=== PATIENT | female | born 1940 | race Caucasian/White ===

== ENCOUNTER → 2018-09-14 08:46 | Outpatient (CLI) | payer MEDICARE, SELFPAY ==
--- NOTE | 2018-09-14 08:50 | BI_ITS ---
MAMMOGRAPHY - BILATERAL SCREENING REASON FOR EXAM: Female, 77 years old. Routine annual screening examination. PERTINENT HISTORY: Non-contributory. Occasional bilateral breast tenderness. TECHNIQUE: Digital bilateral breast paz (3D mammographic acquisition) in the CC and MLO projections. 2-D mediolateral oblique (MLO) and craniocaudad (CC) views of both breasts were obtained. CAD: Full Field Digital Mammography with Computer Added Detection was performed. COMPARISON: Comparison is made with prior study dated September 07, 2017 and September 04, 2016. FINDINGS: Breast Composition: There are scattered areas of fibroglandular density. There are no dominant masses or suspicious calcifications. Stable small bilateral benign appearing axillary lymph nodes. No other significant abnormalities are identified. There has been no significant change since the prior study. BI/SCREENING MAMM (CAD), BILAT IMPRESSION: Stable bilateral screening mammogram. Yearly follow-up mammogram recommended. (A) ASSESSMENT CATEGORY: BIRADS Category 2: Benign. A letter regarding these results will be sent to the patient by the facility within 30 days. Approximately 10% of breast cancers are not detected by mammography. A normal mammogram should not delay biopsy of a clinically suspicious abnormality. [id number] Electronically Signed: Aleks Del Toro MD at 10:07 EST Tel [phone], Service support ,
--- OUTSIDE RECORDS SUMMARY | 2018-10-31 07:15 | XMS RPT_ITS ---
:1940 Author Organization OHIP Care Team Providers Name Role Phone ANSELMO GERBER MD Attending Priya CLARK MD., DR. BUCKNER Primary Care Priya CLARK MD., DR. BUCKNER Attending Priya CLARK MD., DR. BUCKNER Primary Care Unavailable ANSELMO GERBER MD, MD., DR. BUCKNER Primary Care Unavailable AMBER SINGH, DR. BUCKNER Attending Priya CLARK MD., DR. BUCKNER Primary Care Unavailable SITA CLARK Attending Unavailable SITA CLARK Referring Unavailable SITA CLARK Attending Unavailable SITA CLARK Referring Unavailable SITA CLARK Attending Unavailable SITA CLARK Referring Unavailable Sita Clark Attending Sita Thompson Primary Care Unavailable PROBLEMS PROBLEMS DATE TYPE CONDITION / CODE ATTENDING STATUS SOURCE 09/23/2018 Unknown Z12.31 - Sita Clark Active [facility] for Repository malignant neoplasm of breast / Z12.31(ICD-10) PROCEDURES PROCEDURES No Procedure Records FoundRESULTS RESULTS A1C Collected: 10/13/2018 Status: F Source: [facility] 12:31 PM [facility]ATION REPOSITORY TYPE CODE TESTS RESULT OUT OF RANGE REFERENCE UNITS LAB A1C(LOINC) 4.5-6.2 % Hgb A1c 6.0 Performed By: #### A1C #### [facility] [address] [place] [address] CNPTOUTREACH Observed: 10/04/2018 Status: COMPLETED Source: [place] 12:00 AM [facility] REPOSITORY Patient Outreach (INTMWH) YADY RIVERA ([id number]) 1940 F Date Time Provider Department 10/04/[facility] During your visit today, we recorded the following information about you: Allergies As of Date: 10/04/2018 (No Known Allergies) Date Reviewed: 06/11/2018 Reviewed by: Uzma España LPN - Fully Assessed Visit Diagnosis:Medication management [Z79.899] Order(s):BASIC METABOLIC PNL [SQBMP] Order #: [id number] FUTURE HGB A1C [TUFMR4G] Order #: [id number] FUTURE Prescriptions as of 10/04/2018 Sig: CINNAMON BARK 500 MG CAPSULE Take 1,000 mg by mouth every * HYDROCHLOROTHIAZIDE 25 MG TAB* Take 0.5 tablets by mouth onc* ATENOLOL 25 MG TABLET Take 1 tablet by mouth once d* LEVOTHYROXINE 88 MCG TABLET Take 1 tablet by mouth daily * ASCORBIC ACID (VITAMIN C) 500* Takes 1/2 tab daily. ASPIRIN 81 MG TABLET Take 81 mg by mouth. CHOLECALCIFEROL (VITAMIN D3) * Take 1 capsule by mouth once * * NIACIN 250 MG TABLET Take one(1) tablet daily. * FISH OIL 500 MG CAPSULE Take one(1) capsule daily. Problem List As Of Date 10/04/2018 Noted Resolved Essential hypertension [I10] More... Hyperlipidemia [E78.5] More... More... Diverticulosis of colon (without mention of hem* More... SEBORRHEIC KERATOSIS NOS [L82.1] Knee Pain [M25.569] INVALID FOR* Benign neoplasm of colon [D12.6] INVALID FOR* More... Subclavian artery stenosis, left [I77.1] More... 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 Bilateral inguinal hernia without obstruction o*INVALID FOR* More... Intermittent palpitations [R00.2] INVALID FOR* Encounter Status:Closed by [employer], PRODUSER on 10/19/18 SCREENING MAMM (CAD), Observed: 09/14/2018 Status: F Source: [facility] 8:50 AM [facility] REPOSITORY [facility] Imaging Services [address] [place] [id number] SCREENING MAMM (CAD), BILAT MR#: [id number] Acct: [id number] Name: YADY RIVERA Rep #: [id number] : 1940 F 77 From: Aleks Del Toro MD PCP: Sita Clark MD Status: [facility] Study: SCREENING MAMM (CAD), BILAT Date of Exam: 09/14/18 Exam# [id number] Ordering Dr: Sita Clark MD MAMMOGRAPHY - BILATERAL SCREENING REASON FOR EXAM: Female, 77 years old. Routine annual screening examination. PERTINENT HISTORY: Non-contributory. Occasional bilateral breast tenderness. TECHNIQUE: Digital bilateral breast paz (3D mammographic acquisition) in the CC and MLO projections. 2-D mediolateral oblique (MLO) and craniocaudad (CC) views of both breasts were obtained. CAD: Full Field Digital Mammography with Computer Added Detection was performed. COMPARISON: Comparison is made with prior study dated September 07, 2017 and September 04, 2016. FINDINGS: Breast Composition: There are scattered areas of fibroglandular density. There are no dominant masses or suspicious calcifications. Stable small bilateral benign appearing axillary lymph nodes. No other significant abnormalities are identified. There has been no significant change since the prior study. BI/SCREENING MAMM (CAD), BILAT IMPRESSION: Stable bilateral screening mammogram. Yearly follow-up mammogram recommended. (A) ASSESSMENT CATEGORY: BIRADS Category 2: Benign. A letter regarding these results will be sent to the patient by the facility within 30 days. Approximately 10% of breast cancers are not detected by mammography. A normal mammogram should not delay biopsy of a clinically suspicious abnormality. [id number] Electronically Signed: Aleks Del Toro MD at 10:07 EST Tel [phone], Service support , CC: Sita Clark MD Lining Scrubber: Signed CBC Collected: 06/29/2018 Status: F Source: [facility] 7:46 AM [facility] REPOSITORY TYPE CODE TESTS RESULT OUT OF REFERENCE UNITS RANGE LAB WBC(LOINC) 4.60-10.80 10 3/mcL WBC 5.90 LAB RBCCT(LOINC 4.20-5.40 10 6/mcL ) RBC 4.51 LAB HGB(LOINC) 12.0-16.0 G/dL Hgb 13.1 LAB HCT(LOINC) 37.0-47.0 % Hct 41.0 LAB MCV(LOINC) 80.0-94.0 fL MCV 91.0 LAB MCH(LOINC) 27.0-31.2 pg MCH 29.0 LAB MCHC(LOINC) 33.0-37.0 G/dL Low MCHC 31.9 LAB RDW(LOINC) 11.5-14.5 % High RDW 14.9 LAB PLT(LOINC) 130-400 10 3/mcL Platelet 268 LAB MPV(LOINC) 7.4-10.4 fL MPV 9.5 Performed By: #### CBC, ADIFF, ANEU #### [address] [address] #### TSH, FT4, FT3, CMP, GFR, A1C, THYR1, THYAB #### [address] [address] .AUTO DIFF Collected: 06/29/2018 Status: F Source: [facility] 7:46 AM [facility] REPOSITORY TYPE CODE TESTS RESULT OUT OF REFERENCE UNITS RANGE LAB ETIENNE(LOINC) 37.0-80.0 % Neutrophil % 54.7 LAB LYM(LOINC) 10.0-50.0 % Lymphocyte % 33.3 LAB MON(LOINC) 1.7-13.0 % Monocyte % 9.4 LAB EO(LOINC) 0.0-7.0 % Eosinophil % 2.0 LAB BAS(LOINC) 0.0-2.5 % Basophil % 0.6 LAB ABLYM(LOIN 0.77-3.85 10 3/mcL C) Lymphocyte, 2.00 Absolute LAB RAFFAELE(LOINC 0.15-1.00 10 3/mcL ) Monocyte, 0.60 Absolute LAB AEOS(LOINC 0.00-0.40 10 3/mcL ) Eosinophil, 0.10 Absolute LAB ABAS(LOINC 0.00-0.19 10 3/mcL ) Basophil, 0.00 Absolute Performed By: #### CBC, ADIFF, ANEU #### [address] [address] #### TSH, FT4, FT3, CMP, GFR, A1C, THYR1, THYAB #### [address] [address] .NEUABS Collected: 06/29/2018 Status: F Source: [facility] 7:46 AM [facility] REPOSITORY TYPE CODE TESTS RESULT OUT OF REFERENCE UNITS RANGE LAB ANEU(LOINC) 2.85-6.16 10 3/mcL Neutrophil, 3.20 Absolute Performed By: #### CBC, ADIFF, ANEU #### [address] [address] #### TSH, FT4, FT3, CMP, GFR, A1C, THYR1, THYAB #### [address] [address] TSH Collected: 06/29/2018 Status: F Source: [facility] 7:46 AM [facility] REPOSITORY TYPE CODE TESTS RESULT OUT OF RANGE REFERENCE UNITS LAB TSH(LOINC) 0.36-3.74 mcIU/mL TSH 0.57 Performed By: #### CBC, ADIFF, ANEU #### [address] [address] #### TSH, FT4, FT3, CMP, GFR, A1C, THYR1, THYAB #### [place] [address] FT4 Collected: 06/29/2018 Status: F Source: [facility] 7:46 AM [facility] REPOSITORY TYPE CODE TESTS RESULT OUT OF RANGE REFERENCE UNITS LAB FT4(LOINC) 0.76-1.46 ng/dL Free T4 1.10 Performed By: #### CBC, ADIFF, ANEU #### [place] [address] #### TSH, FT4, FT3, CMP, GFR, A1C, THYR1, THYAB #### [place] [address] FT3 Collected: 06/29/2018 Status: F Source: [facility] 7:46 AM [facility] REPOSITORY TYPE CODE TESTS RESULT OUT OF RANGE REFERENCE UNITS LAB FT3(LOINC) 2.30-4.00 pg/mL Low Free T3 2.18 Performed By: #### CBC, ADIFF, ANEU #### [place] [address] #### TSH, FT4, FT3, CMP, GFR, A1C, THYR1, THYAB #### [place] [address] CMP Collected: 06/29/2018 Status: F Source: [facility] 7:46 AM [facility] REPOSITORY TYPE CODE TESTS RESULT OUT OF REFERENCE UNITS RANGE LAB GLU(LOINC) 83-110 mg/dL Low Glucose Level 80 LAB NA(LOINC) 136-145 mmol/L Sodium Level 141 LAB K(LOINC) 3.5-5.1 mmol/L Potassium Level 3.8 LAB CL(LOINC) 98-107 mmol/L Chloride 101 LAB CO2(LOINC) 23-31 mmol/L CO2 28 LAB EBAL(LOINC mEq/L ) Electrolyte Balance 12.0 LAB BUN(LOINC) 7-18 mg/dL BUN High 20 LAB CRE(LOINC) 0.55-1.02 mg/dL Creatinine Lvl (s) 0.90 LAB BC(LOINC) 7-27 ratio BUN/Creatinine 22 Ratio LAB CA(LOINC) 8.4-10.2 mg/dL Calcium Lvl 9.2 LAB PROT(LOINC 6.4-8.2 G/dL ) Total Protein 7.5 LAB ALB(LOINC) 3.4-4.8 G/dL Albumin Level 3.8 LAB GLB(LOINC) G/dL Globulin 3.7 LAB AG(LOINC) 1.1-2.5 ratio Low A/G Ratio 1.0 LAB BILT(LOINC 0.2-1.0 mg/dL ) Bili Total 0.5 LAB AP(LOINC) 40-135 U/L Alk Phos 82 LAB AST(LOINC) 10-40 U/L AST/SGOT 17 LAB ALT(LOINC) 10-35 U/L ALT/SGPT 16 Performed By: #### CBC, ADIFF, ANEU #### [address] [address] #### TSH, FT4, FT3, CMP, GFR, A1C, THYR1, THYAB #### [address] [address] .GFR Collected: 06/29/2018 Status: F Source: [facility] 7:46 AM [facility] REPOSITORY TYPE CODE TESTS RESULT OUT OF REFERENCE UNITS RANGE LAB GFRAA(LOINC ml/min/1.73 ) sqm GFR 74 [place] Result Comment: GFR Population mean for , Non- Americans Ages 20-29 = 116 mL/min/1.73 sq.m. Ages 30-39 = 107 mL/min/1.73 sq.m. Ages 40-49 = 99 mL/min/1.73 sq.m. Ages 50-59 = 93 mL/min/1.73 sq.m. Ages 60-69 = 85 mL/min/1.73 sq.m. Ages 70+ = 75 mL/min/1.73 sq.m. Chronic Kidney Disease: Less than 60 mL/min/1.73 square meters End Stage Renal Disease: Less than 15 mL/min/1.73 square meters LAB GFRNO(LOINC) ml/min/1.73sqm GFR Non- 61 Result Comment: GFR Population mean for , Non- Americans Ages 20-29 = 116 mL/min/1.73 sq.m. Ages 30-39 = 107 mL/min/1.73 sq.m. Ages 40-49 = 99 mL/min/1.73 sq.m. Ages 50-59 = 93 mL/min/1.73 sq.m. Ages 60-69 = 85 mL/min/1.73 sq.m. Ages 70+ = 75 mL/min/1.73 sq.m. Chronic Kidney Disease: Less than 60 mL/min/1.73 square meters End Stage Renal Disease: Less than 15 mL/min/1.73 square meters Performed By: #### KALIE, SCOOTER, ANEU #### [address] [address] #### TSH, FT4, FT3, CMP, GFR, A1C, THYR1, THYAB #### [address] [address] A1C Collected: 06/29/2018 Status: F Source: [facility] 7:46 AM [facility] REPOSITORY TYPE CODE TESTS RESULT OUT OF RANGE REFERENCE UNITS LAB A1C(LOINC) 4.5-6.2 % Hgb A1c 6.2 Performed By: #### CBC, SCOOTER, ANEU #### [address] [address] #### TSH, FT4, FT3, CMP, GFR, A1C, THYR1, THYAB #### [address] [address] ZTHYR Collected: 06/29/2018 Status: F Source: [facility] 7:46 AM [facility] REPOSITORY TYPE CODE TESTS RESULT OUT OF REFERENCE UNITS RANGE LAB THYR1(LOIN 2-55 ng/mL C) Thyroglobulin Low <1 Performed By: #### CBC, ADIFF, ANEU #### [address] [address] #### TSH, FT4, FT3, CMP, GFR, A1C, THYR1, THYAB #### [place] [address] THYAB Collected: 06/29/2018 Status: F Source: [facility] 7:46 AM [facility] REPOSITORY TYPE CODE TESTS RESULT OUT OF REFERENCE UNITS RANGE LAB THYRG(LOIN 0-40 IU/mL C) Thyroglobulin Ab <20 LAB MCRSO(LOIN 0-35 IU/mL C) Microsomal Ab 16 Result Comment: This result represents Anti-TPO antibodies which are synonymous with microsomal antibodies. Performed By: #### CBC, ADIFF, ANEU #### [address] [address] #### TSH, FT4, FT3, CMP, GFR, A1C, THYR1, THYAB #### [place] [address] PROGRESS Observed: 06/11/2018 Status: COMPLETED Source: [place] 11:57 AM [facility] REPOSITORY HNO ID: [id number] Author: Sita Clark Service: (none) Author Type: Physician Type: Progress Notes Filed: 06/25/2018 12:51 AM Note Text: Patient presents with: Recheck: Follow up SUBJECTIVE: Yady Rivera is a 77 year old year old lady here today for 4 month follow up appointment for review of medical conditions. Weight loss concern. Weight down again since January but thought had lost all the weight after January though on review of weight in computer saw that weight had been stable from August to January after lost weight last year from 130 to 119. Episodes of heart rate being labile--irregular, lasting 15 minutes--3 to 4 episodes. Starting in January. Not in May, Two after water class. One at night. Maybe gas--had some pressure on abdomen. Issues with constipation noted. No GERD noted. Labs done at [place]. Noted right side of anus on buttocks red lesion about 8mm diameter with small head medially--not tender now. Started a month ago. Figured was a boil. Not painful--just irritating. SKs noted. Still not sleeping well. Could fall asleep but up again 3 to 4AM. Sometimes hard to fall back to sleep. Needs to get up by 8:15AM to take her Synthroid then get breakfast [facility] 11:30 bedtime. PAST MEDICAL HISTORY Diagnosis Date - Benign neoplasm of colon Tubular adenoma on 2011 colonoscopy - Cholelithiasis - Chondromalacia of right patella MRI - Diverticulosis of colon (without mention of hemorrhage) diagnosed 2001 (Dr. Jamaal Rodriguez) on colonoscopy in [facility] - Diverticulosis of colon (without mention of hemorrhage) - LVH (left ventricular hypertrophy) 2011 mild; seen on echo at 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 Kendall Alexandra did angiogram January 06, 2014 - Tubular adenoma 01/13/2016 - Tubular adenoma of colon 01/02/2012 Will be due 01/01/[address] Rizvi - Unspecified essential hypertension Current Outpatient Prescriptions: Cinnamon Bark (CINNAMON) 500 mg cap Take 1,000 mg by mouth every other day. hydroCHLOROthiazide (HYDRODIURIL, ESIDRIX) 25 mg tablet Take 0.5 tablets by mouth once daily. atenolol (TENORMIN) 25 mg tablet Take 1 tablet by mouth once daily. levothyroxine (SYNTHROID) 88 mcg tablet Take 1 tablet by mouth daily before breakfast. 6 days a week per Endocrinology (decreased in March 2017) ascorbic acid, vitamin C, (VITAMIN C) 500 mg tablet Takes 1/2 tab daily. Aspirin 81 mg tab Take 81 mg by mouth. Cholecalciferol, Vitamin D3, 1,000 unit cap Take 1 capsule by mouth once daily. NIACIN 250 MG TAB Take one(1) tablet daily. Docosahexanoic Acid-Eicosapent (FISH OIL) ORAL Cap Take one(1) capsule daily. No current facility-administered medications for this visit. OBJECTIVE: BP 126/78 Pulse 68 Resp 20 Wt 52.6 kg (116 lb) BMI 18.72 kg/m? Patient is alert, oriented times 3, no apparent distress, affect is bright, reactive. Last 5 Encounter BP Readings: Date: BP: 06/11/2018 126/78 01/29/2018 138/66 08/25/2017 124/58 04/10/2017 140/62 02/02/2017 142/60 Last 10 Encounter Wt Readings: Date: Wt: 06/11/2018 52.6 kg (116 lb) 01/29/2018 54 kg (119 lb) 08/25/2017 54 kg (119 lb) 04/10/2017 54.9 kg (121 lb) 01/15/2017 59 kg (130 lb 1.1 oz) 01/08/2017 59 kg (130 lb 1.1 oz) 12/18/2016 59 kg (130 lb) 11/26/2016 59.4 kg (131 lb) 04/18/2016 59.4 kg (131 lb) 12/17/2015 59 kg (130 lb) HEENT: NCAT; no scleral icterus Heart: Regular rate, rhythm, no murmurs, gallops, rubs. Lungs: Clear to auscultation, bilaterally, breathing non labored. Ext: No cyanosis, clubbing, or edema. Inguinal hernia area apparently with bulging bilaterally. Reducible. Larger on left. Not tender. Evaluated while patient standing up (she noted that not noticeable much unless standing up). ASSESSMENT AND PLAN: Encounter Diagnosis ICD-10-CM 1. Essential hypertension I10 2. Intermittent palpitations R00.2 3. Unintended weight loss R63.4 4. Bilateral inguinal hernia without obstruction or gangrene, recurrence not specified K40.20 5. Mixed hyperlipidemia E78.2 6. IFG (impaired fasting glucose) R73.01 7. History of thyroid cancer Z85.850 8. Constipation, unspecified constipation type K59.00 9. SK (seborrheic keratosis) L82.1 Above issues addressed with patient. Patient involved in shared decision making for management of her medical issues. History and medications reviewed. Epic updated as needed Refills taken care of and meds adjusted as indicated after reviewed history, exam and labs. Health Maintenance reviewed. Updated record and/or ordered tests as recorded. Encouraged on efforts at healthy diet and regular exercise and adequate sleep. See patient instructions. Needs to improve sleep. Patient with list of concerns to address today as noted above. She will decide about if/when wants to see general surgeon for opinion regarding inguinal hernias and if/when should have repaired. She needs to improve nutrition before pursuing any kind of elective surgery though. Discussed getting more calories in daily to help with nutrition and prevent further weight loss. Was fairly stable at 119 till this appointment. Further evaluation and treatment as indicated. Monitor palpitations. Further evaluation and treatment as indicated. Suspect needs to drink enough fluids and improve intake of electrolytes (adequate nutrition). The majority of the visit was spent counseling and/or coordinating care for the patient. Sqjg-kh-colj time was at least 25 minutes. Sita Clark MD CNOV Observed: 06/11/2018 Status: COMPLETED Source: [place] 10:40 AM [facility] REPOSITORY Office Visit (INTMWS) YADY RIVERA ([id number]) 1940 F Date Time Provider Department 06/11/18 10:40 AM SITA CLARK [facility] During your visit today, we recorded the following information about you: Pulse Respiration Blood pressure Weight 68/minute 20/minute 126/78 52.6 kg Sita Clark MD 06/25/2018 12:51 AM Signed Patient presents with: Recheck: Follow up SUBJECTIVE: Yadygraciela Rivera is a 77 year old year old lady here today for 4 month follow up appointment for review of medical conditions. Weight loss concern. Weight down again since January but thought had lost all the weight after January though on review of weight in computer saw that weight had been stable from August to January after lost weight last year from 130 to 119. Episodes of heart rate being labile--irregular, lasting 15 minutes--3 to 4 episodes. Starting in January. Not in May, Two after water class. One at night. Maybe gas--had some pressure on abdomen. Issues with constipation noted. No GERD noted. Labs done at [place]. Noted right side of anus on buttocks red lesion about 8mm diameter with small head medially--not tender now. Started a month ago. Figured was a boil. Not painful--just irritating. SKs noted. Still not sleeping well. Could fall asleep but up again 3 to 4AM. Sometimes hard to fall back to sleep. Needs to get up by 8:15AM to take her Synthroid then get breakfast so can go to the . 11:30 bedtime. PAST MEDICAL HISTORY Diagnosis Date - Benign neoplasm of colon Tubular adenoma on 2011 colonoscopy - Cholelithiasis - Chondromalacia of right patella MRI - Diverticulosis of colon (without mention of hemorrhage) diagnosed 2001 (Dr. Jamaal Rodriguez) on colonoscopy in [facility] - Diverticulosis of colon (without mention of hemorrhage) - LVH (left ventricular hypertrophy) 2011 mild; seen on echo at 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 Kendall Alexandra did angiogram January 06, 2014 - Tubular adenoma 01/13/2016 - Tubular adenoma of colon 01/02/2012 Will be due 01/01/[address] Rizvi - Unspecified essential hypertension Current Outpatient Prescriptions: Cinnamon Bark (CINNAMON) 500 mg cap Take 1,000 mg by mouth every other day. hydroCHLOROthiazide (HYDRODIURIL, ESIDRIX) 25 mg tablet Take 0.5 tablets by mouth once daily. atenolol (TENORMIN) 25 mg tablet Take 1 tablet by mouth once daily. levothyroxine (SYNTHROID) 88 mcg tablet Take 1 tablet by mouth daily before breakfast. 6 days a week per Endocrinology (decreased in March 2017) ascorbic acid, vitamin C, (VITAMIN C) 500 mg tablet Takes 1/2 tab daily. Aspirin 81 mg tab Take 81 mg by mouth. Cholecalciferol, Vitamin D3, 1,000 unit cap Take 1 capsule by mouth once daily. NIACIN 250 MG TAB Take one(1) tablet daily. Docosahexanoic Acid-Eicosapent (FISH OIL) ORAL Cap Take one(1) capsule daily. No current facility-administered medications for this visit. OBJECTIVE: BP 126/78 Pulse 68 Resp 20 Wt 52.6 kg (116 lb) BMI 18.72 kg/m? Patient is alert, oriented times 3, no apparent distress, affect is bright, reactive. Last 5 Encounter BP Readings: Date: BP: 06/11/2018 126/78 01/29/2018 138/66 08/25/2017 124/58 04/10/2017 140/62 02/02/2017 142/60 Last 10 Encounter Wt Readings: Date: Wt: 06/11/2018 52.6 kg (116 lb) 01/29/2018 54 kg (119 lb) 08/25/2017 54 kg (119 lb) 04/10/2017 54.9 kg (121 lb) 01/15/2017 59 kg (130 lb 1.1 oz) 01/08/2017 59 kg (130 lb 1.1 oz) 12/18/2016 59 kg (130 lb) 11/26/2016 59.4 kg (131 lb) 04/18/2016 59.4 kg (131 lb) 12/17/2015 59 kg (130 lb) HEENT: NCAT; no scleral icterus Heart: Regular rate, rhythm, no murmurs, gallops, rubs. Lungs: Clear to auscultation, bilaterally, breathing non labored. Ext: No cyanosis, clubbing, or edema. Inguinal hernia area apparently with bulging bilaterally. Reducible. Larger on left. Not tender. Evaluated while patient standing up (she noted that not noticeable much unless standing up). ASSESSMENT AND PLAN: Encounter Diagnosis ICD-10-CM 1. Essential hypertension I10 2. Intermittent palpitations R00.2 3. Unintended weight loss R63.4 4. Bilateral inguinal hernia without obstruction or gangrene, recurrence not specified K40.20 5. Mixed hyperlipidemia E78.2 6. IFG (impaired fasting glucose) R73.01 7. History of thyroid cancer Z85.850 8. Constipation, unspecified constipation type K59.00 9. SK (seborrheic keratosis) L82.1 Above issues addressed with patient. Patient involved in shared decision making for management of her medical issues. History and medications reviewed. Epic updated as needed Refills taken care of and meds adjusted as indicated after reviewed history, exam and labs. Health Maintenance reviewed. Updated record and/or ordered tests as recorded. Encouraged on efforts at healthy diet and regular exercise and adequate sleep. See patient instructions. Needs to improve sleep. Patient with list of concerns to address today as noted above. She will decide about if/when wants to see general surgeon for opinion regarding inguinal hernias and if/when should have repaired. She needs to improve nutrition before pursuing any kind of elective surgery though. Discussed getting more calories in daily to help with nutrition and prevent further weight loss. Was fairly stable at 119 till this appointment. Further evaluation and treatment as indicated. Monitor palpitations. Further evaluation and treatment as indicated. Suspect needs to drink enough fluids and improve intake of electrolytes (adequate nutrition). The majority of the visit was spent counseling and/or coordinating care for the patient. Gfip-im-glll time was at least 25 minutes. MD Sita Hoskins MD 06/11/2018 12:43 PM Signed Sleep Hygiene and Good Sleep Habits Establish a regular routine that includes going to bed and getting up at the same time every day, even on weekends. Maintaining a consistent sleep-wake cycle is the hicks to better health overall. Get an adequate amount of sleep every night. Determine the amount of sleep you need by keeping track of how long you sleep without using an alarm clock for a week. Maintain this personal sleep requirement. Go to bed when you are sleepy. If you have difficulty falling asleep or wake up shortly after going to sleep, leave the bedroom and read quietly or do some other relaxing activity. Avoid bright lights as this can cue your wake cycle. Develop sleep rituals before going to bed. Do the same things in the same order before going to bed to cue your body to slow down and relax. Avoid stress and worries at bedtime. Address tomorrow's activities, concerns, or distractions earlier in the day. Certain activities, such as listening to soft music, reading, or taking a warm bath, can help you wind down. Use your bed for sleeping and sex only. Often, doing other activities in bed like watching TV, paying bills, or working only serve to initiate worries and concerns. Let your mind associate the bed with sleeping, relaxing, and pleasure. Avoid heavy meals late in the evening; similarly, avoid going to bed hungry. A light snack, especially dairy foods, can help you sleep. Reduce your intake of caffeine and nicotine 4-6 hours before going to sleep. Stimulants interfere with your ability to fall asleep and progress into deep sleep. 200mg caffeine (a large Starbucks coffee) taken at 8 AM will impair the sleep architecture that night. Avoid alcohol 4-6 hours before bedtime. As a depressant that slows brain activity, alcohol may initially make you tired, but you will end up having fragmented sleep. In addition, being tired intensifies the effects of alcohol. Alcohol also aggravates snoring and sleep apnea particularly in men. Exercise regularly. Regular exercise, even for 20 minutes, 3 times a week, promotes deep sleep. Don't nap for more than 30 minutes or after 3 PM. Avoiding naps all together will ensure that you are tired at night. Longer naps disrupt the body's ability to stay asleep. Maintain a dark, quiet room to sleep in at a temperature with which you are comfortable. Use sleeping aids conservatively, and avoid using them for more than one or two nights per month. Avoid sleeping pills altogether if you have obstructive sleep apnea because it can be a deadly combination. Referring Provider: SITA CLARK [[id number]] Allergies As of Date: 06/11/2018 (No Known Allergies) Date Reviewed: 06/11/2018 Reviewed by: Uzma España LPN - Fully Assessed Reason for Visit: Recheck [92] Cmt: Follow up Primary Visit Diagnosis:Essential hypertension [I10] Other Visit Diagnoses:Intermittent palpitations [R00.2] Unintended weight loss [R63.4] Bilateral inguinal hernia without obstruction or gangrene, recurrence not specified [K40.20] Mixed hyperlipidemia [E78.2] IFG (impaired fasting glucose) [R73.01] History of thyroid cancer [Z85.850] Constipation, unspecified constipation type [K59.00] SK (seborrheic keratosis) [L82.1] Prescriptions as of 06/11/2018 Sig: CINNAMON BARK 500 MG CAPSULE Take 1,000 mg by mouth every * HYDROCHLOROTHIAZIDE 25 MG TAB* Take 0.5 tablets by mouth onc* ATENOLOL 25 MG TABLET Take 1 tablet by mouth once d* LEVOTHYROXINE 88 MCG TABLET Take 1 tablet by mouth daily * ASCORBIC ACID (VITAMIN C) 500* Takes 1/2 tab daily. ASPIRIN 81 MG TABLET Take 81 mg by mouth. CHOLECALCIFEROL (VITAMIN D3) * Take 1 capsule by mouth once * * NIACIN 250 MG TABLET Take one(1) tablet daily. * FISH OIL 500 MG CAPSULE Take one(1) capsule daily. Medication notes this encounter ASPIRIN 81 MG TABLET >> Uzma España LPN 06/11/2018 11:11 AM >> UZMA ESPAÑA LPN ThuJun 11, 2018 11:11 AM Problem List As Of Date 06/11/2018 Noted Resolved Essential hypertension [I10] More... Hyperlipidemia [E78.5] More... More... Diverticulosis of colon (without mention of hem* More... SEBORRHEIC KERATOSIS NOS [L82.1] Knee Pain [M25.569] INVALID FOR* Benign neoplasm of colon [D12.6] INVALID FOR* More... Subclavian artery stenosis, left [I77.1] More... 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 Bilateral inguinal hernia without obstruction o*INVALID FOR* More... Other instructions from your clinician: Sleep Hygiene and Good Sleep Habits Establish a regular routine that includes going to bed and getting up at the same time every day, even on weekends. Maintaining a consistent sleep-wake cycle is the hicks to better health overall. Get an adequate amount of sleep every night. Determine the amount of sleep you need by keeping track of how long you sleep without using an alarm clock for a week. Maintain this personal sleep requirement. Go to bed when you are sleepy. If you have difficulty falling asleep or wake up shortly after going to sleep, leave the bedroom and read quietly or do some other relaxing activity. Avoid bright lights as this can cue your wake cycle. Develop sleep rituals before going to bed. Do the same things in the same order before going to bed to cue your body to slow down and relax. Avoid stress and worries at bedtime. Address tomorrow's activities, concerns, or distractions earlier in the day. Certain activities, such as listening to soft music, reading, or taking a warm bath, can help you wind down. Use your bed for sleeping and sex only. Often, doing other activities in bed like watching TV, paying bills, or working only serve to initiate worries and concerns. Let your mind associate the bed with sleeping, relaxing, and pleasure. Avoid heavy meals late in the evening; similarly, avoid going to bed hungry. A light snack, especially dairy foods, can help you sleep. Reduce your intake of caffeine and nicotine 4-6 hours before going to sleep. Stimulants interfere with your ability to fall asleep and progress into deep sleep. 200mg caffeine (a large Starbucks coffee) taken at 8 AM will impair the sleep architecture that night. Avoid alcohol 4-6 hours before bedtime. As a depressant that slows brain activity, alcohol may initially make you tired, but you will end up having fragmented sleep. In addition, being tired intensifies the effects of alcohol. Alcohol also aggravates snoring and sleep apnea particularly in men. Exercise regularly. Regular exercise, even for 20 minutes, 3 times a week, promotes deep sleep. Don't nap for more than 30 minutes or after 3 PM. Avoiding naps all together will ensure that you are tired at night. Longer naps disrupt the body's ability to stay asleep. Maintain a dark, quiet room to sleep in at a temperature with which you are comfortable. Use sleeping aids conservatively, and avoid using them for more than one or two nights per month. Avoid sleeping pills altogether if you have obstructive sleep apnea because it can be a deadly combination. Disposition: Return in about 4 months (around 10/11/2018) for 4 months follow up. Follow-up and Disposition History Recorded Encounter Status:Closed by SITA CLARK MD on 06/25/18 MELODY Observed: 05/25/2018 Status: COMPLETED Source: [place] 12:00 AM [facility] REPOSITORY [facility] YADY RIVERA ([id number]) 1940 F Date Time Provider Department 05/25/18 SITA CLARK During your visit today, we recorded the following information about you: Allergies As of Date: 05/25/2018 (No Known Allergies) Date Reviewed: 01/29/2018 Reviewed by: Kaia Duffy Facility Worker - Fully Assessed Visit Diagnosis:Medication management [Z79.899] Prescriptions as of 05/25/2018 Sig: ATENOLOL 25 MG TABLET Take 1 tablet by mouth once d* LEVOTHYROXINE 88 MCG TABLET Take 1 tablet by mouth daily * X HYDROCHLOROTHIAZIDE 25 MG TAB* Take 0.5 tablets by mouth onc* ASCORBIC ACID (VITAMIN C) 500* Takes 1/2 tab daily. ASPIRIN 81 MG TABLET Take 81 mg by mouth. CHOLECALCIFEROL (VITAMIN D3) * Take 1 capsule by mouth once * * NIACIN 250 MG TABLET Take one(1) tablet daily. * FISH OIL 500 MG CAPSULE Take one(1) capsule daily. Problem List As Of Date 05/25/2018 Noted Resolved Essential hypertension [I10] More... Hyperlipidemia [E78.5] More... More... Diverticulosis of colon (without mention of hem* More... SEBORRHEIC KERATOSIS NOS [L82.1] Knee Pain [M25.569] INVALID FOR* Benign neoplasm of colon [D12.6] INVALID FOR* More... Subclavian artery stenosis, left [I77.1] More... 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 Encounter Status:Closed by KURT, PRODUSER on 07/16/18 LIPID Collected: 04/28/2018 Status: F Source: [facility] 7:52 AM [facility] REPOSITORY TYPE CODE TESTS RESULT OUT OF REFERENCE UNITS RANGE LAB CHOL(LOINC 0-200 mg/dL ) Cholesterol High 246 Result Comment: Cholesterol Reference Interval: Less than 200 Desirable 200-239 Borderline high risk 240 and above High risk LAB TRIG(LOINC) 0-150 mg/dL Triglycerides 88 Result Comment: Triglyceride Reference Interval: Less than 150 Normal 150-199 Borderline high risk 200-499 High risk 500 or higher Very high risk LAB HD(LOINC) 40-60 mg/dL HDL High Cholesterol 85 LAB LDL(LOINC) 0-130 mg/dL LDL High Cholesterol 143 Performed By: #### LIPID #### [facility] [address] [place] [address] PROGRESS Observed: 01/29/2018 Status: COMPLETED Source: [place] 11:58 AM [facility] REPOSITORY HNO ID: [id number] Author: Sita Clark Service: (none) Author Type: Physician Type: Progress Notes Filed: 02/11/2018 9:55 PM Note Text: Patient presents with: Recheck SUBJECTIVE: Yady Rivera is a 77 year old year old lady here today for 4 month follow up appointment for review of medical conditions. Will get labs in [address] Gerber. Was told that is borderline DM. Glucose 111 fasting. Puzzled about carb info was given. Constipation with bananas and cheese and calcium pills. Can be a week. Dulcolax helped when had prep. Potassium doing okay. No problems with leg cramps. Only 4 hours of sleep at night. Generic tylenol PM half pill helps. PAST MEDICAL HISTORY Diagnosis Date - Benign neoplasm of colon Tubular adenoma on 2011 colonoscopy - Cholelithiasis - Chondromalacia of right patella MRI - Diverticulosis of colon (without mention of hemorrhage) diagnosed 2001 (Dr. Jamaal Rodriguez) on colonoscopy in [facility] - Diverticulosis of colon (without mention of hemorrhage) - LVH (left ventricular hypertrophy) 2011 mild; seen on echo at 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 Kendall Alexandra did angiogram January 06, 2014 - Tubular adenoma 01/13/2016 - Tubular adenoma of colon 01/02/2012 Will be due 01/01/[address] Rizvi - Unspecified essential hypertension Current Outpatient Prescriptions: atenolol (TENORMIN) 25 mg tablet Take 1 tablet by mouth once daily. levothyroxine (SYNTHROID) 88 mcg tablet Take 1 tablet by mouth daily before breakfast. 6 days a week per Endocrinology (decreased in March 2017) hydroCHLOROthiazide (HYDRODIURIL, ESIDRIX) 25 mg tablet Take 0.5 tablets by mouth once daily. ascorbic acid, vitamin C, (VITAMIN C) 500 mg tablet Takes 1/2 tab daily. Aspirin 81 mg tab Take 81 mg by mouth. Cholecalciferol, Vitamin D3, 1,000 unit cap Take 1 capsule by mouth once daily. NIACIN 250 MG TAB Take one(1) tablet daily. Docosahexanoic Acid-Eicosapent (FISH OIL) ORAL Cap Take one(1) capsule daily. No current facility-administered medications for this visit. OBJECTIVE: BP 138/66 Pulse 60 Resp 12 Wt 54 kg (119 lb) BMI 19.21 kg/m2 Patient is alert, oriented times 3, no apparent distress, affect is bright, reactive. Last 5 Encounter BP Readings: Date: BP: 01/29/2018 138/66 08/25/2017 124/58 04/10/2017 140/62 02/02/2017 142/60 01/15/2017 124/60 Last 5 Encounter Wt Readings: Date: Wt: 01/29/2018 54 kg (119 lb) 08/25/2017 54 kg (119 lb) 04/10/2017 54.9 kg (121 lb) 01/15/2017 59 kg (130 lb 1.1 oz) 01/08/2017 59 kg (130 lb 1.1 oz) Neck: no lymphadenopathy ; carotid noted prominent on right Heart: Regular rate, rhythm, no murmurs, gallops, rubs. Lungs: Clear to auscultation, bilaterally, breathing non labored. Ext: No cyanosis, clubbing, or edema. Abd: tympani BMP Collected: 12/23/2017 9:49 AM Status: F Source: [facility] REPOSITORY TYPE CODE TESTS RESULT OUT OF RANGE REFERENCE UNITS LAB 1547-9 GLUCOSE 111 High 83-110 mg/dL LAB NA(LOINC) Sodium Level 141 ? 136-146 mEq/L LAB K(LOINC) Potassium Level 3.9 ? 3.5-5.1 mEq/L LAB CL(LOINC) Chloride 101 ? 98-107 mEq/L LAB CO2(LOINC) CO2 30 ? 23-31 mEq/L LAB EBAL(LOINC) Electrolyte Balance 10.0 ? ? mEq/L LAB BUN(LOINC) BUN 12.5 ? 7.0-18.0 mg/dL LAB CRE(LOINC) Creatinine Lvl (s) 0.7 ? 0.6-1.2 mg/dL LAB BC(LOINC) BUN/Creatinine Ratio 18 ? 7-27 ratio LAB CA(LOINC) Calcium Lvl 9.5 ? 8.4-10.2 mg/dL Performed By: #### BMP, GFR, TSH, FT4, FT3 #### [place] [address] .GFR Collected: 12/23/2017 9:49 AM Status: F Source: [facility] REPOSITORY TYPE CODE TESTS RESULT OUT OF RANGE REFERENCE UNITS LAB GFRAA([facility]) GFR 91 ? ? ml/min/1.73sqm Result Comment: GFR Population mean for , Non- Americans Ages 20-29 = 116 mL/min/1.73 sq.m. Ages 30-39 = 107 mL/min/1.73 sq.m. Ages 40-49 = 99 mL/min/1.73 sq.m. Ages 50-59 = 93 mL/min/1.73 sq.m. Ages 60-69 = 85 mL/min/1.73 sq.m. Ages 70+ = 75 mL/min/1.73 sq.m. Chronic Kidney Disease: Less than 60 mL/min/1.73 square meters End Stage Renal Disease: Less than 15 mL/min/1.73 square meters LAB GFRNO(LOINC) GFR Non- >60 ? ? ml/min/1.73sqm Result Comment: GFR Population mean for , Non- Americans Ages 20-29 = 116 mL/min/1.73 sq.m. Ages 30-39 = 107 mL/min/1.73 sq.m. Ages 40-49 = 99 mL/min/1.73 sq.m. Ages 50-59 = 93 mL/min/1.73 sq.m. Ages 60-69 = 85 mL/min/1.73 sq.m. Ages 70+ = 75 mL/min/1.73 sq.m. Chronic Kidney Disease: Less than 60 mL/min/1.73 square meters End Stage Renal Disease: Less than 15 mL/min/1.73 square meters Performed By: #### BMP, GFR, TSH, FT4, FT3 #### [address] [address] TSH Collected: 12/23/2017 9:49 AM Status: F Source: [facility] REPOSITORY TYPE CODE TESTS RESULT OUT OF RANGE REFERENCE UNITS LAB TSH(LOINC) TSH 0.47 ? 0.27-4.20 mcIU/mL Performed By: #### JOSE, GFR, TSH, FT4, FT3 #### [address] [address] FT4 Collected: 12/23/2017 9:49 AM Status: F Source: [facility] REPOSITORY TYPE CODE TESTS RESULT OUT OF RANGE REFERENCE UNITS LAB FT4(LOINC) Free T4 1.5 ? 0.6-1.7 ng/mL Performed By: #### JOSE, GFR, TSH, FT4, FT3 #### [address] [address] FT3 Collected: 12/23/2017 9:49 AM Status: F Source: [facility] REPOSITORY TYPE CODE TESTS RESULT OUT OF RANGE REFERENCE UNITS LAB FT3(LOINC) Free T3 2.2 Low 2.3-4.0 pg/mL Performed By: #### JOSE, GFR, TSH, FT4, FT3 #### [address] [address] ASSESSMENT AND PLAN: Encounter Diagnosis ICD-10-CM 1. Essential hypertension I10 2. Mixed hyperlipidemia E78.2 LIPID PANEL BASIC 3. History of thyroid cancer Z85.850 4. Constipation, unspecified constipation type K59.00 5. IFG (impaired fasting glucose) R73.01 Following with sleeping car porter; borderline diabetic. Continue efforts at diet exercise. Discussed carbohydrates and diet was instructed by Dr. Gerber 6. Subclavian artery stenosis, left (HCC) I77.1 7. 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 Continue present management. Will follow up on lipids. She will continue to follow up with sleeping car porter after thyroid cancer treatment. Clinically euthyroid. TSH fine. Continue to adjust dose of replacement as indicated based on symptoms and labs. Discussed management of constipation. Further evaluation and treatment as indicated. Above issues addressed with patient. Patient involved in shared decision making for management of her medical issues. History and medications reviewed. Epic updated as needed Refills taken care of and meds adjusted as indicated after reviewed history, exam and labs. Health Maintenance reviewed. Updated record and/or ordered tests as recorded. Encouraged on efforts at healthy diet and regular exercise and adequate sleep. Reviewed stable from PAD standpoint with regards to history of subclavian artery stenosis and brachial artery occlusion with good collateral circulation when was evaluated by Dr. Alexandra. No complaints of claudication. The majority of the visit was spent counseling and/or coordinating care for the patient. Jkno-it-ywnk time was at least 25 minutes. Sita Clark MD CNOV Observed: 01/29/2018 Status: COMPLETED Source: [place] 11:00 AM [facility] REPOSITORY Office Visit (INTMWS) YADY RIVERA ([id number]) 1940 F Date Time Provider Department 01/29/18 11:00 AM SITA CLARK INTMWS During your visit today, we recorded the following information about you: Pulse Respiration Blood pressure Weight 60/minute 12/minute 138/66 54 kg Sita Clark 02/11/2018 9:55 PM Signed Patient presents with: Recheck SUBJECTIVE: Yady Persaud Miguel is a 77 year old year old lady here today for 4 month follow up appointment for review of medical conditions. Will get labs in [address] Gerber. Was told that is borderline DM. Glucose 111 fasting. Puzzled about carb info was given. Constipation with bananas and cheese and calcium pills. Can be a week. Dulcolax helped when had prep. Potassium doing okay. No problems with leg cramps. Only 4 hours of sleep at night. Generic tylenol PM half pill helps. PAST MEDICAL HISTORY Diagnosis Date - Benign neoplasm of colon Tubular adenoma on 2011 colonoscopy - Cholelithiasis - Chondromalacia of right patella MRI - Diverticulosis of colon (without mention of hemorrhage) diagnosed 2001 (Dr. Jamaal Rodriguez) on colonoscopy in [facility] - Diverticulosis of colon (without mention of hemorrhage) - LVH (left ventricular hypertrophy) 2011 mild; seen on echo at 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 Kendall Alexandra did angiogram January 06, 2014 - Tubular adenoma 01/13/2016 - Tubular adenoma of colon 01/02/2012 Will be due 01/01/[address] Rizvi - Unspecified essential hypertension Current Outpatient Prescriptions: atenolol (TENORMIN) 25 mg tablet Take 1 tablet by mouth once daily. levothyroxine (SYNTHROID) 88 mcg tablet Take 1 tablet by mouth daily before breakfast. 6 days a week per Endocrinology (decreased in March 2017) hydroCHLOROthiazide (HYDRODIURIL, ESIDRIX) 25 mg tablet Take 0.5 tablets by mouth once daily. ascorbic acid, vitamin C, (VITAMIN C) 500 mg tablet Takes 1/2 tab daily. Aspirin 81 mg tab Take 81 mg by mouth. Cholecalciferol, Vitamin D3, 1,000 unit cap Take 1 capsule by mouth once daily. NIACIN 250 MG TAB Take one(1) tablet daily. Docosahexanoic Acid-Eicosapent (FISH OIL) ORAL Cap Take one(1) capsule daily. No current facility-administered medications for this visit. OBJECTIVE: BP 138/66 Pulse 60 Resp 12 Wt 54 kg (119 lb) BMI 19.21 kg/m2 Patient is alert, oriented times 3, no apparent distress, affect is bright, reactive. Last 5 Encounter BP Readings: Date: BP: 01/29/2018 138/66 08/25/2017 124/58 04/10/2017 140/62 02/02/2017 142/60 01/15/2017 124/60 Last 5 Encounter Wt Readings: Date: Wt: 01/29/2018 54 kg (119 lb) 08/25/2017 54 kg (119 lb) 04/10/2017 54.9 kg (121 lb) 01/15/2017 59 kg (130 lb 1.1 oz) 01/08/2017 59 kg (130 lb 1.1 oz) Neck: no lymphadenopathy ; carotid noted prominent on right Heart: Regular rate, rhythm, no murmurs, gallops, rubs. Lungs: Clear to auscultation, bilaterally, breathing non labored. Ext: No cyanosis, clubbing, or edema. Abd: tympani BMP Collected: 12/23/2017 9:49 AM Status: F Source: [facility] REPOSITORY TYPE CODE TESTS RESULT OUT OF RANGE REFERENCE UNITS LAB 1547-9 GLUCOSE 111 High 83-110 mg/dL LAB NA(LOINC) Sodium Level 141 ? 136-146 mEq/L LAB K(LOINC) Potassium Level 3.9 ? 3.5-5.1 mEq/L LAB CL(LOINC) Chloride 101 ? 98-107 mEq/L LAB CO2(LOINC) CO2 30 ? 23-31 mEq/L LAB EBAL(LOINC) Electrolyte Balance 10.0 ? ? mEq/L LAB BUN(LOINC) BUN 12.5 ? 7.0-18.0 mg/dL LAB CRE(LOINC) Creatinine Lvl (s) 0.7 ? 0.6-1.2 mg/dL LAB BC(LOINC) BUN/Creatinine Ratio 18 ? 7-27 ratio LAB CA(LOINC) Calcium Lvl 9.5 ? 8.4-10.2 mg/dL Performed By: #### BMP, GFR, TSH, FT4, FT3 #### [address] [address] .GFR Collected: 12/23/2017 9:49 AM Status: F Source: [facility] REPOSITORY TYPE CODE TESTS RESULT OUT OF RANGE REFERENCE UNITS LAB GFRAA(LOINC) GFR 91 ? ? ml/min/1.73sqm Result Comment: GFR Population mean for , Non- Americans Ages 20-29 = 116 mL/min/1.73 sq.m. Ages 30-39 = 107 mL/min/1.73 sq.m. Ages 40-49 = 99 mL/min/1.73 sq.m. Ages 50-59 = 93 mL/min/1.73 sq.m. Ages 60-69 = 85 mL/min/1.73 sq.m. Ages 70+ = 75 mL/min/1.73 sq.m. Chronic Kidney Disease: Less than 60 mL/min/1.73 square meters End Stage Renal Disease: Less than 15 mL/min/1.73 square meters LAB GFRNO(LOINC) GFR Non- >60 ? ? ml/min/1.73sqm Result Comment: GFR Population mean for , Non- Americans Ages 20-29 = 116 mL/min/1.73 sq.m. Ages 30-39 = 107 mL/min/1.73 sq.m. Ages 40-49 = 99 mL/min/1.73 sq.m. Ages 50-59 = 93 mL/min/1.73 sq.m. Ages 60-69 = 85 mL/min/1.73 sq.m. Ages 70+ = 75 mL/min/1.73 sq.m. Chronic Kidney Disease: Less than 60 mL/min/1.73 square meters End Stage Renal Disease: Less than 15 mL/min/1.73 square meters Performed By: #### JOSE, GFR, TSH, FT4, FT3 #### [address] [address] [address] TSH Collected: 12/23/2017 9:49 AM Status: F Source: [facility] REPOSITORY TYPE CODE TESTS RESULT OUT OF RANGE REFERENCE UNITS LAB TSH(LOINC) TSH 0.47 ? 0.27-4.20 mcIU/mL Performed By: #### JOSE, GFR, TSH, FT4, FT3 #### [facility] [address] [address] FT4 Collected: 12/23/2017 9:49 AM Status: F Source: [facility] REPOSITORY TYPE CODE TESTS RESULT OUT OF RANGE REFERENCE UNITS LAB FT4(LOINC) Free T4 1.5 ? 0.6-1.7 ng/mL Performed By: #### JOSE, GFR, TSH, FT4, FT3 #### [facility] [address], [place] [address] FT3 Collected: 12/23/2017 9:49 AM Status: F Source: [facility] REPOSITORY TYPE CODE TESTS RESULT OUT OF RANGE REFERENCE UNITS LAB FT3(LOINC) Free T3 2.2 Low 2.3-4.0 pg/mL Performed By: #### BMP, GFR, TSH, FT4, FT3 #### [facility] [address], [place] [address] ASSESSMENT AND PLAN: Encounter Diagnosis ICD-10-CM 1. Essential hypertension I10 2. Mixed hyperlipidemia E78.2 LIPID PANEL BASIC 3. History of thyroid cancer Z85.850 4. Constipation, unspecified constipation type K59.00 5. IFG (impaired fasting glucose) R73.01 Following with sleeping car porter; borderline diabetic. Continue efforts at diet exercise. Discussed carbohydrates and diet was instructed by Dr. Gerber 6. Subclavian artery stenosis, left (HCC) I77.1 7. 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 Continue present management. Will follow up on lipids. She will continue to follow up with sleeping car porter after thyroid cancer treatment. Clinically euthyroid. TSH fine. Continue to adjust dose of replacement as indicated based on symptoms and labs. Discussed management of constipation. Further evaluation and treatment as indicated. Above issues addressed with patient. Patient involved in shared decision making for management of her medical issues. History and medications reviewed. Epic updated as needed Refills taken care of and meds adjusted as indicated after reviewed history, exam and labs. Health Maintenance reviewed. Updated record and/or ordered tests as recorded. Encouraged on efforts at healthy diet and regular exercise and adequate sleep. Reviewed stable from PAD standpoint with regards to history of subclavian artery stenosis and brachial artery occlusion with good collateral circulation when was evaluated by Dr. Alexandra. No complaints of claudication. The majority of the visit was spent counseling and/or coordinating care for the patient. Mqta-gb-plrr time was at least 25 minutes. MD Amber Hoskins Liza D 01/29/2018 12:21 PM Signed Sleep Hygiene and Good Sleep Habits Establish a regular routine that includes going to bed and getting up at the same time every day, even on weekends. Maintaining a consistent sleep-wake cycle is the hicks to better health overall. Get an adequate amount of sleep every night. Determine the amount of sleep you need by keeping track of how long you sleep without using an alarm clock for a week. Maintain this personal sleep requirement. Go to bed when you are sleepy. If you have difficulty falling asleep or wake up shortly after going to sleep, leave the bedroom and read quietly or do some other relaxing activity. Avoid bright lights as this can cue your wake cycle. Develop sleep rituals before going to bed. Do the same things in the same order before going to bed to cue your body to slow down and relax. Avoid stress and worries at bedtime. Address tomorrow's activities, concerns, or distractions earlier in the day. Certain activities, such as listening to soft music, reading, or taking a warm bath, can help you wind down. Use your bed for sleeping and sex only. Often, doing other activities in bed like watching TV, paying bills, or working only serve to initiate worries and concerns. Let your mind associate the bed with sleeping, relaxing, and pleasure. Avoid heavy meals late in the evening; similarly, avoid going to bed hungry. A light snack, especially dairy foods, can help you sleep. Reduce your intake of caffeine and nicotine 4-6 hours before going to sleep. Stimulants interfere with your ability to fall asleep and progress into deep sleep. 200mg caffeine (a large Starbucks coffee) taken at 8 AM will impair the sleep architecture that night. Avoid alcohol 4-6 hours before bedtime. As a depressant that slows brain activity, alcohol may initially make you tired, but you will end up having fragmented sleep. In addition, being tired intensifies the effects of alcohol. Alcohol also aggravates snoring and sleep apnea particularly in men. Exercise regularly. Regular exercise, even for 20 minutes, 3 times a week, promotes deep sleep. Don't nap for more than 30 minutes or after 3 PM. Avoiding naps all together will ensure that you are tired at night. Longer naps disrupt the body's ability to stay asleep. Maintain a dark, quiet room to sleep in at a temperature with which you are comfortable. Use sleeping aids conservatively, and avoid using them for more than one or two nights per month. Avoid sleeping pills altogether if you have obstructive sleep apnea because it can be a deadly combination. Referring Provider: SITA CLARK [[id number]] Allergies As of Date: 01/29/2018 (No Known Allergies) Date Reviewed: 01/29/2018 Reviewed by: Kaia Duffy Cma - Fully Assessed Reason for Visit: Recheck [92] Primary Visit Diagnosis:Essential hypertension [I10] Other Visit Diagnoses:Mixed hyperlipidemia [E78.2] History of thyroid cancer [Z85.850] Constipation, unspecified constipation type [K59.00] IFG (impaired fasting glucose) [R73.01] Comment:Following with sleeping car porter; borderline diabetic. Continue efforts at diet exercise. Discussed carbohydrates and diet was instructed by Dr. 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 ASPIRIN 81 MG TABLET Take 81 mg by mouth. CHOLECALCIFEROL (VITAMIN D3) * Take 1 capsule by mouth once * * NIACIN 250 MG TABLET Take one(1) tablet daily. * FISH OIL 500 MG CAPSULE Take one(1) capsule daily. Problem List As Of Date 01/29/2018 Noted Resolved Essential hypertension [I10] More... Hyperlipidemia [E78.5] More... More... Diverticulosis of colon (without mention of hem* More... SEBORRHEIC KERATOSIS NOS [L82.1] Knee Pain [M25.569] INVALID FOR* Benign neoplasm of colon [D12.6] INVALID FOR* More... Subclavian artery stenosis, left [I77.1] More... 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 Maintaining a consistent sleep-wake cycle is the hicks to better health overall. Get an adequate amount of sleep every night. Determine the amount of sleep you need by keeping track of how long you sleep without using an alarm clock for a week. Maintain this personal sleep requirement. Go to bed when you are sleepy. If you have difficulty falling asleep or wake up shortly after going to sleep, leave the bedroom and read quietly or do some other relaxing activity. Avoid bright lights as this can cue your wake cycle. Develop sleep rituals before going to bed. Do the same things in the same order before going to bed to cue your body to slow down and relax. Avoid stress and worries at bedtime. Address tomorrow's activities, concerns, or distractions earlier in the day. Certain activities, such as listening to soft music, reading, or taking a warm bath, can help you wind down. Use your bed for sleeping and sex only. Often, doing other activities in bed like watching TV, paying bills, or working only serve to initiate worries and concerns. Let your mind associate the bed with sleeping, relaxing, and pleasure. Avoid heavy meals late in the evening; similarly, avoid going to bed hungry. A light snack, especially dairy foods, can help you sleep. Reduce your intake of caffeine and nicotine 4-6 hours before going to sleep. Stimulants interfere with your ability to fall asleep and progress into deep sleep. 200mg caffeine (a large Starbucks coffee) taken at 8 AM will impair the sleep architecture that night. Avoid alcohol 4-6 hours before bedtime. As a depressant that slows brain activity, alcohol may initially make you tired, but you will end up having fragmented sleep. In addition, being tired intensifies the effects of alcohol. Alcohol also aggravates snoring and sleep apnea particularly in men. Exercise regularly. Regular exercise, even for 20 minutes, 3 times a week, promotes deep sleep. Don't nap for more than 30 minutes or after 3 PM. Avoiding naps all together will ensure that you are tired at night. Longer naps disrupt the body's ability to stay asleep. Maintain a dark, quiet room to sleep in at a temperature with which you are comfortable. Use sleeping aids conservatively, and avoid using them for more than one or two nights per month. Avoid sleeping pills altogether if you have obstructive sleep apnea because it can be a deadly combination. Disposition: Return in about 4 months (around 05/31/2018) for 4 months follow up. Follow-up and Disposition History Recorded Encounter Status:Closed by SITA CLARK MD on 02/11/18 BMP Collected: 12/23/2017 Status: F [facility]: [facility] 9:49 AM [facility] REPOSITORY TYPE CODE TESTS RESULT OUT OF REFERENCE UNITS RANGE LAB 1547-9 83-110 mg/dL GLUCOSE High 111 LAB NA(LOINC) 136-146 mEq/L Sodium Level 141 LAB K(LOINC) 3.5-5.1 mEq/L Potassium Level 3.9 LAB CL(LOINC) 98-107 mEq/L Chloride 101 LAB CO2(LOINC) 23-31 mEq/L CO2 30 LAB EBAL(LOINC mEq/L ) Electrolyte Balance 10.0 LAB BUN(LOINC) 7.0-18.0 mg/dL BUN 12.5 LAB CRE(LOINC) 0.6-1.2 mg/dL Creatinine Lvl (s) 0.7 LAB BC(LOINC) 7-27 ratio BUN/Creatinine 18 Ratio LAB CA(LOINC) 8.4-10.2 mg/dL Calcium Lvl 9.5 Performed By: #### BMP, GFR, TSH, FT4, FT3 #### [address] [address] .GFR Collected: 12/23/2017 Status: F Source: [facility] 9:49 AM [facility] REPOSITORY TYPE CODE TESTS RESULT OUT OF REFERENCE UNITS RANGE LAB GFRAA(LOINC ml/min/1.73 ) sqm GFR 91 [place] Result Comment: GFR Population mean for , Non- Americans Ages 20-29 = 116 mL/min/1.73 sq.m. Ages 30-39 = 107 mL/min/1.73 sq.m. Ages 40-49 = 99 mL/min/1.73 sq.m. Ages 50-59 = 93 mL/min/1.73 sq.m. Ages 60-69 = 85 mL/min/1.73 sq.m. Ages 70+ = 75 mL/min/1.73 sq.m. Chronic Kidney Disease: Less than 60 mL/min/1.73 square meters End Stage Renal Disease: Less than 15 mL/min/1.73 square meters LAB GFRNO(LOINC) ml/min/1.73sqm GFR Non- >60 Result Comment: GFR Population mean for , Non- Americans Ages 20-29 = 116 mL/min/1.73 sq.m. Ages 30-39 = 107 mL/min/1.73 sq.m. Ages 40-49 = 99 mL/min/1.73 sq.m. Ages 50-59 = 93 mL/min/1.73 sq.m. Ages 60-69 = 85 mL/min/1.73 sq.m. Ages 70+ = 75 mL/min/1.73 sq.m. Chronic Kidney Disease: Less than 60 mL/min/1.73 square meters End Stage Renal Disease: Less than 15 mL/min/1.73 square meters Performed By: #### JOSE, GFR, TSH, FT4, FT3 #### [address] [address] TSH Collected: 12/23/2017 Status: F Source: [facility] 9:49 AM [facility] REPOSITORY TYPE CODE TESTS RESULT OUT OF RANGE REFERENCE UNITS LAB TSH(LOINC) 0.27-4.20 mcIU/mL TSH 0.47 Performed By: #### BMP, GFR, TSH, FT4, FT3 #### [address] [address] FT4 Collected: 12/23/2017 Status: F [facility] REPOSITORY TYPE CODE TESTS RESULT OUT OF RANGE REFERENCE UNITS LAB FT4(LOINC) 0.6-1.7 ng/mL Free T4 1.5 Performed By: #### BMP, GFR, TSH, FT4, FT3 #### [address] [address] FT3 Collected: 12/23/2017 Status: F Source: [facility] 9:49 [facility] REPOSITORY TYPE CODE TESTS RESULT OUT OF RANGE REFERENCE UNITS LAB FT3(LOINC) 2.3-4.0 pg/mL Low Free T3 2.2 Performed By: #### BMP, GFR, TSH, FT4, FT3 #### [facility] [address] [address] OBSOLETE Observed: 11/02/2017 Status: COMPLETED Source: [facility] 12:00 AM [facility] REPOSITORY Refill (INTMWS) YADY RIVERA ([id number]) 1940 F Date Time Provider Department 11/02/17 SITA CLARK INTMWS During your visit today, we recorded the following information about you: Miriam Bass 11/02/2017 8:55 AM Signed Patient has been identified by name and date of : Yes Pending Prescriptions Disp Refills ATENOLOL 25 MG TABLET 30 tablet 1 Sig: Take 1 tablet by mouth once daily. LORETTA: No RX INSTRUCTIONS: Patient aware RX will be sent to pharmacy. No need to notify patient. Patient is requesting a 30 day supply Miriam Duffy Cma 11/02/2017 3:25 PM Signed Patient has been identified by name and date of : Yes Patient phones for refill(s): Pending Prescriptions Disp Refills ATENOLOL 25 MG TABLET 30 tablet 3 Sig: Take 1 tablet by mouth once daily. LORETTA: No Date of last office visit in primary care: 08/25/17 Last 2 Encounter Wt Readings: Date: Wt: 08/25/2017 54 kg (119 lb) 04/10/2017 54.9 kg (121 lb) Previous labs/tests for medication: Blood Pressure: BUN (mg/dL) Date Value 07/14/2013 16 Sodium (mmol/L) Date Value 07/14/2013 137 Last 1 Encounter BP Readings: Date: BP: 08/25/2017 124/58 Please advise. Thank you. Kaia Duffy Cma Kendra De Dios, BUTTON TUFTING MACHINE OPERATOR, BUTTON TUFTING MACHINE OPERATOR 11/02/2017 4:55 PM Signed [place] serum creatinine Current Outpatient Prescriptions: levothyroxine (SYNTHROID) 88 mcg tablet Take 1 tablet by mouth daily before breakfast. 6 days a week per Endocrinology (decreased in March 2017) hydroCHLOROthiazide (HYDRODIURIL, ESIDRIX) 25 mg tablet Take 0.5 tablets by mouth once daily. atenolol (TENORMIN) 25 mg tablet Take 1 tablet by mouth once daily. ascorbic acid, vitamin C, (VITAMIN C) 500 mg tablet Takes 1/2 tab daily. Aspirin 81 mg tab Take 81 mg by mouth. Cholecalciferol, Vitamin D3, 1,000 unit cap Take 1 capsule by mouth once daily. NIACIN 250 MG TAB Take one(1) tablet daily. Docosahexanoic Acid-Eicosapent (FISH OIL) ORAL Cap Take one(1) capsule daily. No current facility-administered medications for this visit. Allergies As of Date: 11/02/2017 (No Known Allergies) Date Reviewed: 08/25/2017 Reviewed by: Kaia Duffy Cma - Fully Assessed Reason for Visit: Refill Request [94] Order(s):atenolol (TENORMIN) 25 mg tabletTake 1 tablet by mouth once daily.Disp: 30 tabletRfl: 3 Prescriptions as of 11/02/2017 Sig: ATENOLOL 25 MG TABLET Take 1 tablet by mouth once d* LEVOTHYROXINE 88 MCG TABLET Take 1 tablet by mouth daily * HYDROCHLOROTHIAZIDE 25 MG TAB* Take 0.5 tablets by mouth onc* ASCORBIC ACID (VITAMIN C) 500* Takes 1/2 tab daily. ASPIRIN 81 MG TABLET Take 81 mg by mouth. CHOLECALCIFEROL (VITAMIN D3) * Take 1 capsule by mouth once * * NIACIN 250 MG TABLET Take one(1) tablet daily. * FISH OIL 500 MG CAPSULE Take one(1) capsule daily. Problem List As Of Date 11/02/2017 Noted Resolved Essential hypertension [I10] More... Hyperlipidemia [E78.5] More... More... Diverticulosis of colon (without mention of hem* More... SEBORRHEIC KERATOSIS NOS [L82.1] Knee Pain [M25.569] INVALID FOR* Benign neoplasm of colon [D12.6] INVALID FOR* More... Subclavian artery stenosis, left [I77.1] More... 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 Any refills authorized will be placed on file. Route: ORAL Sig: Take 1 tablet by mouth once daily. Medications Discontinued During This Encounter atenolol (TENORMIN) 25 mg tablet 90 t* 1 04/06/2017 11/02/2017 Cmt: This prescription was filled on 04/03/2017. Any refills authorized will be placed on file. Sig: Take 1 tablet by mouth once daily. Disc: Reason for discontinue is not on file. Encounter Status:Closed by KENDRA BRINK on 11/02/17 ALLERGIES ALLERGIES DATE TYPE / CODE NAME / CODE REACTION SEVERITY SOURCE 01/19/2017 Drug No Known Unknown [facility] Allergy/416 Allergies/A55592 [facility] 311004(SNOM 0388(RXNORM) Repository ED CT) Drug NO KNOWN [facility] Class/82625 ALLERGIES [facility] [place] 1003(SNOMED Repository CT) ENCOUNTERS ENCOUNTERS ADMIT/DISCHARGE ACCOUNT NUMBER ADMITTING ENCOUNTER LOCATION SOURCE CLASS 10/20/2018/10/20/19 [id number] Ambulatory [address] [place] Repository 10/13/2018/10/13/19 [id number] Ambulatory BBuilding:[address] Repository 09/14/2018 [id number] Ambulatory [facility] ding:[facility] Repository 06/29/2018/06/29/20 [id number] Ambulatory [address] ding:[facility] Repository 06/11/2018/06/28/20 [id number] Ambulatory [address] Repository 04/28/2018/04/28/[id number] ding:[facility] Repository 01/29/2018/02/16/20 [id number] Ambulatory [address] Repository 12/23/2017/12/24/[id number] ding:[facility] Repository PAYERS PAYERS ENCOUNTER GUARANTOR PAYER SUBSCRIBER SOURCE 10/13/2018 [facility]: [facility]DOB: [facility] N [facility] MEDICAREPolicy [id number] [address] Number: [address] [place] [address] [id number] [address] [place] [address]Gnw: [phone]) Date:2018-10-13 26077Xde: [id number] [phone] ()Tel: [phone]) Name:[id number] [facility] () () [address] () [place], [place] [address]IY: 09/14/2018 YADY Persaud Vanessa [address] [facility] [address] [facility] [id number] [facility] [address], [place] MEDICAREPolicy Repository [address]Blj: 330) Number: [phone] () [id number] Date: [place], [place] [address]SX: 09/14/2018 Secondary NOT GIVENUNK Gray Insurance:SELF PAY [facility] Number: Effective Repository Date:2018-08-06 06/29/2018 [facility] Insurance:SECURECARE [place]ACKSONDOB: [facility] N [facility] MEDICARECommunity Health Systems [id number] Number: [address] [place] [address] [id number] [address] [place] [id number]: (330) Date:2018-06-29 28355Ghh: [id number] (HP)Tel: [phone]) Name:[id number] [address] (WP) [place], [place] [address]RE: 04/28/2018 YADY Persaud [facility]Y [facility]: [facility] N [facility] MEDICAREPolicy [id number] [address]: [address], [place] [id number] [address] [place] [id number]: (330) Date:2018-04-28 [address]55[address]Aog: [id number] (HP)Tel: [phone]) Name:[id number] [address] (WP) [place], [place] [address]CB: 12/23/2017 YADY Persaud [facility] YADY [facility]B: [facility] CLARE: [facility] N [facility] MEDICAREPolicy [id number]: [address], [place] [id number] [address] [place] [address]Lcd: ([phone]) Date:2017-12-23 39[address]Ioj: [id number] (HP)Tel: [phone]) Name:[id number] [address] ([address] ([address] (WP) [place], [place] [address]TB:
== END ==
PROVIDERS: Family Provider Internal Medicine; PCP Internal Medicine; Visit Provider Internal Medicine
DX: Z12.31 Encounter for screening mammogram for malignant neoplasm of breast (principal)
CPT/HCPCS: 77063; 77067

== ENCOUNTER → 2019-09-15 14:45 | Outpatient (CLI) | payer MEDICARE, SELFPAY ==
[2019-01-20 13:13] VITALS: BMI 19.6
--- NOTE | 2019-09-15 14:49 | BI_ITS ---
MAMMOGRAPHY - BILATERAL SCREENING REASON FOR EXAM: Female, 78 years old. Routine annual screening examination. PERTINENT HISTORY: Non-contributory. Remote left excisional breast biopsy. Occasional bilateral breast tenderness. TECHNIQUE: Digital bilateral breast lin (3D mammographic acquisition) in the CC and MLO projections. 2-D mediolateral oblique (MLO) and craniocaudad (CC) views of both breasts were obtained. CAD: Full Field Digital Mammography with Computer Added Detection was performed. COMPARISON: Comparison is made with prior study dated September 14, 2018 and September 07, 2017. FINDINGS: Breast Composition: There are scattered areas of fibroglandular density. There are no dominant masses or suspicious calcifications. No other significant abnormalities are identified. There has been no significant change since the prior study. BI/SCREEN MAMM (CAD) W/LIN BILAT IMPRESSION: Stable bilateral screening mammogram. Yearly follow-up mammogram recommended. (A) ASSESSMENT CATEGORY: BIRADS Category 1: Negative. A letter regarding these results will be sent to the patient by the facility within 30 days. Approximately 10% of breast cancers are not detected by mammography. A normal mammogram should not delay biopsy of a clinically suspicious abnormality. [id number] Electronically Signed: Aleks Del Toro, at 15:42 EST , Service support ,
== END ==
PROVIDERS: Family Provider Internal Medicine; PCP Internal Medicine; Referring Provider Internal Medicine; Visit Provider Internal Medicine
DX: Z12.31 Encounter for screening mammogram for malignant neoplasm of breast (principal)
CPT/HCPCS: 77063; 77067

== ENCOUNTER → 2020-04-04 13:08 | Outpatient (CLI) | payer MEDICARE, SELFPAY ==
[2019-01-20 13:13] VITALS: BMI 19.6
--- NOTE | 2020-04-04 13:20 | CT_ITS ---
STUDY: CT CHEST WITHOUT CONTRAST REASON FOR EXAM: Female, 79 years old. LUNG NODULE F/U RADIATION DOSAGE (If Supplied By Facility): CTDIvol = ( 6.1 ) mGy, DLP = ( 204.41 ) mGycm TECHNIQUE: Transaxial imaging was performed without the administration of intravenous contrast material. Individualized dose optimization techniques were used for this CT. COMPARISON: None. FINDINGS: No suspicious pulmonary nodules or masses. There is no demonstrated pleural abnormality. Normal heart and pericardium. Normal mediastinum. Normal hilar regions. Normal unenhanced pulmonary arteries. 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 Normal osseous structures. [address]/Chest without Contrast IMPRESSION: No suspicious pulmonary nodules or masses. 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 Electronically Signed: Gutierrez Cardona MD at 14:35 EDT Tel , Service support ,
== END ==
PROVIDERS: PCP Internal Medicine; Referring Provider Internal Medicine; Visit Provider Internal Medicine
DX: R91.8 Other nonspecific abnormal finding of lung field (principal)
CPT/HCPCS: 71250

== ENCOUNTER → 2020-09-17 13:17 | Outpatient (CLI) | payer MEDICARE, SELFPAY ==
[2019-01-20 13:13] VITALS: BMI 19.6
--- NOTE | 2020-09-17 13:19 | BI_ITS ---
MAMMOGRAPHY - BILATERAL SCREENING REASON FOR EXAM: Female, 79 years old. Routine annual screening examination. PERTINENT HISTORY: Non-contributory. Remote left excisional breast biopsy. TECHNIQUE: Digital bilateral breast lin (3D mammographic acquisition) in the CC and MLO projections. 2-D mediolateral oblique (MLO) and craniocaudad (CC) views of both breasts were obtained. CAD: Full Field Digital Mammography with Computer Added Detection was performed. COMPARISON: Comparison is made with prior study dated 09/15/2019 and 09/14/2018. FINDINGS: Breast Composition: There are scattered areas of fibroglandular density. There are no dominant masses or suspicious calcifications. No other significant abnormalities are identified. There has been no significant change since the prior study. BI/SCREEN MAMM (CAD) W/LIN BILAT IMPRESSION: Stable bilateral screening mammogram. Yearly follow-up mammogram recommended. (A) ASSESSMENT CATEGORY: BIRADS Category 1: Negative. A letter regarding these results will be sent to the patient by the facility within 30 days. Approximately 10% of breast cancers are not detected by mammography. A normal mammogram should not delay biopsy of a clinically suspicious abnormality. [id number] Electronically Signed: Aleks Del Toro, at 13:55 EST , Service support ,
== END ==
PROVIDERS: PCP Internal Medicine; Referring Provider Internal Medicine; Visit Provider Internal Medicine
DX: Z12.31 Encounter for screening mammogram for malignant neoplasm of breast (principal)
CPT/HCPCS: 77063; 77067

== ENCOUNTER → 2021-09-18 13:43 | Outpatient (CLI) | payer MEDICARE, SELFPAY ==
--- NOTE | 2021-09-18 13:46 | BI_ITS ---
MAMMOGRAPHY - BILATERAL SCREENING REASON FOR EXAM: Female, 80 years old. Routine annual screening examination. PERTINENT HISTORY: Non-contributory. Remote left excisional breast biopsy. TECHNIQUE: Digital bilateral breast lin (3D mammographic acquisition) in the CC and MLO projections. 2-D mediolateral oblique (MLO) and craniocaudad (CC) views of both breasts were obtained. CAD: Full Field Digital Mammography with Computer Added Detection was performed. COMPARISON: Comparison is made with prior examination dated 09/17/2020 and 09/15/2019. FINDINGS: Breast Composition: The breasts are almost entirely fatty. There are no dominant masses or suspicious calcifications. Stable small benign-appearing right axillary lymph nodes. No other significant abnormalities are identified. There has been no significant change since the prior study. BI/SCRN MAMM (CAD)W/LIN BILAT IMPRESSION: Stable bilateral screening mammogram. Yearly follow-up mammogram recommended. (A) ASSESSMENT CATEGORY: BIRADS Category 2: Benign. A letter regarding these results will be sent to the patient by the facility within 30 days. Approximately 10% of breast cancers are not detected by mammography. A normal mammogram should not delay biopsy of a clinically suspicious abnormality. [id number] Electronically Signed: Aleks Del Toro MD at 14:51 EST , Service support ,
== END ==
PROVIDERS: PCP Internal Medicine; Visit Provider Internal Medicine
DX: Z12.31 Encounter for screening mammogram for malignant neoplasm of breast (principal)
CPT/HCPCS: 77063; 77067

== ENCOUNTER → 2022-09-22 | Outpatient (CLI) | payer MEDICARE, SELFPAY ==
--- NOTE | 2022-09-22 14:52 | BI_ITS ---
MAMMOGRAPHY - BILATERAL SCREENING REASON FOR EXAM: Female, 81 years old. Routine annual screening examination. PERTINENT HISTORY: Non-contributory. History of remote left excisional breast biopsy. TECHNIQUE: Digital bilateral breast lin (3D mammographic acquisition) in the CC and MLO projections. 2-D mediolateral oblique (MLO) and craniocaudad (CC) views of both breasts were obtained. CAD: Full Field Digital Mammography with Computer Added Detection was performed. COMPARISON: Comparison is made with prior study dated 09/18/2021 and 09/17/2020. FINDINGS: Breast Composition: There are scattered areas of fibroglandular density. There are no dominant masses or suspicious calcifications. Stable small benign-appearing bilateral axillary lymph nodes. No other significant abnormalities are identified. There has been no significant change since the prior study. BI/SCRN MAMM (CAD)W/LIN BILAT IMPRESSION: Stable bilateral screening mammogram. Yearly follow-up mammogram recommended. (A) ASSESSMENT CATEGORY: BIRADS Category 2: Benign. A letter regarding these results will be sent to the patient by the facility within 30 days. Approximately 10% of breast cancers are not detected by mammography. A normal mammogram should not delay biopsy of a clinically suspicious abnormality. [id number] Electronically Signed: Aleks Del Toro MD at 8:58 EST ,
== END | disposition home or self-care (01) ==
LOC: OPBI 14:48
PROVIDERS: PCP Internal Medicine; Referring Provider Internal Medicine; Visit Provider Internal Medicine
DX: Z12.31 Encounter for screening mammogram for malignant neoplasm of breast (principal)
CPT/HCPCS: 77063; 77067

== ENCOUNTER → 2023-09-23 | Outpatient (CLI) | payer MEDICARE, SELFPAY ==
--- NOTE | 2023-09-23 15:01 | BI_ITS ---
MAMMOGRAPHY - BILATERAL SCREENING REASON FOR EXAM: Female, 82 years old. Routine annual screening examination. PERTINENT HISTORY: Non-contributory. Remote left excisional breast biopsy. TECHNIQUE: Digital bilateral breast lin (3D mammographic acquisition) in the CC and MLO projections. 2-D mediolateral oblique (MLO) and craniocaudad (CC) views of both breasts were obtained. CAD: Full Field Digital Mammography with Computer Added Detection was performed. COMPARISON: Comparison is made with prior study dated September 22, 2022 and September 18, 2021. FINDINGS: Breast Composition: There are scattered areas of fibroglandular density. There are no dominant masses or suspicious calcifications. No other significant abnormalities are identified. There has been no significant change since the prior study. BI/SCRN MAMM (CAD)W/LIN BILAT IMPRESSION: Stable bilateral screening mammogram. Yearly follow-up mammogram recommended. (A) ASSESSMENT CATEGORY: BIRADS Category 1: Negative. A letter regarding these results will be sent to the patient by the facility within 30 days. Approximately 10% of breast cancers are not detected by mammography. A normal mammogram should not delay biopsy of a clinically suspicious abnormality. [id number] Electronically Signed: Aleks Del Toro MD at 15:37 EST ,
== END | disposition home or self-care (01) ==
LOC: OPBI 15:00
PROVIDERS: PCP Internal Medicine; Referring Provider Internal Medicine; Visit Provider Internal Medicine
DX: Z12.31 Encounter for screening mammogram for malignant neoplasm of breast (principal)
CPT/HCPCS: 77063; 77067

== ENCOUNTER 2024-07-29 11:14 | Emergency (ER) | payer MEDICARE, SELFPAY ==
[2024-07-29 11:14] VITALS: BP 184/95; PULSE 66; RESP 16; TEMP 36.8; O2SAT 94; BMI 19.1
--- NOTE | 2024-07-29 11:43 | CT_ITS ---
STUDY: CT BRAIN WITHOUT CONTRAST REASON FOR EXAM: Female, 83 years old. Syncope. Confusion. RADIATION DOSAGE (If Supplied By Facility): CTDIvol = ( 44.99 ) mGy, DLP = ( 779.24 ) mGycm TECHNIQUE: Transaxial CT imaging of the brain was performed without administration of intravenous contrast material. Individualized dose optimization techniques were used for this CT. COMPARISON: No relevant priors. FINDINGS: Normal soft tissue structures. Normal calvarium. There is mild cerebral atrophy with widening of the extra-axial spaces and ventricular dilatation. There are areas of decreased attenuation within the white matter tracts of the supratentorial brain, consistent with microvascular disease changes. Normal basal ganglia and thalami. Normal brainstem. There is mild cerebellar atrophy. There is no intracranial hemorrhage. There are no findings of an acute ischemic infarction. Atherosclerotic plaque formation of the cavernous portions of the internal carotid arteries bilaterally. Normal visualized paranasal sinuses. CT/Brain/Head without Contrast IMPRESSION: Chronic involutional changes of the brain. Electronically Signed: Aleks Del Toro MD at 12:45 EDT ,
--- NOTE | 2024-07-29 11:43 | EKG12_ITS ---
Test Reason : SYNCOPE/CONFUSION Blood Pressure : / mmHG Vent. Rate : 055 BPM Atrial Rate : 055 BPM P-R Int : 166 ms QRS Dur : 072 ms QT Int : 416 ms P-R-T Axes : 070 064 012 degrees QTc Int : 397 ms Sinus bradycardia Minimal voltage criteria for LVH, may be normal variant ( Sokolow-Chapa ) Nonspecific T wave abnormality Abnormal ECG Confirmed by ROMAN WINN, KEVIN ([id number]), school photograph editor HONEY REN ([id number]) on 08/01/2024 9:23:50 AM Referred By: Confirmed By:KEVIN OWENS MD
--- NOTE | 2024-07-29 11:43 | RAD_ITS ---
STUDY: X-RAY CHEST REASON FOR EXAM: Female, 83 years old. Confusion. Patient not feeling well. TECHNIQUE: PA and lateral views of the chest. COMPARISON: None. FINDINGS: EKG electrodes are seen. Hyperinflation. The lungs are clear. There is no demonstrated pleural abnormality. Normal size heart. Normal mediastinum and edwin. Normal visualized pulmonary arteries. There is atherosclerotic tortuosity of the aortic arch and descending thoracic aorta. There are diffuse degenerative changes of the visualized thoracic spine. Normal visualized ribs, clavicles, and shoulders. There is no demonstrated abnormality of the visualized soft tissue structures of the upper abdomen. RAD/Chest PA and Lateral IMPRESSION: Hyperinflation. No acute abnormality is seen. Electronically Signed: Aleks Del Toro MD at 13:04 EDT ,
[2024-07-29 12:07] LABS: Absolute Lymphocyte Count 1.09 X10^3/uL (0.83-4.51); Absolute Neutrophil Count 5.7 X10^3/uL (2.0-7.7); Basophil# 0.06 X10^3/uL; Basophil% 0.8 % (0-1); Eosinophil# 0.04 X10^3/uL; Eosinophils% 0.5 % (0-5); Hematocrit 39.5 % (37-47); Hemoglobin 12.6 g/dL (12.0-15.0); Lymphocyte # 1.09 X10^3/ul (0.83-4.51); Lymphocyte % 14.5 % (19-41); Mean Corp Hgb Conc 31.9 g/dL (32-36); Mean Corpuscular Hgb 29.2 pg (27.0-32.0); Mean Corpuscular Volume 91.6 fL (81-99); Mean Platelet Vol. 10.5 fl (6.2-12.0); Monocyte# 0.64 X10^3/uL; Monocyte% 8.5 % (0-10); NRBC Flagged by Analyzer 0 % (0-5); Neutrophil # 5.67 X10^3/uL (2.7-7.7); Neutrophil % 75.3 % (47-70); Platelet Count 360 K/mm3 (150-450); RBC Distribution Width CV 16.8 % (11.6-14.6); RBC Distribution Width SD 55.9 fl (35.1-43.9); Red Blood Count 4.31 M/mm3 (4.2-5.4); White Blood Count 7.5 K/mm3 (4.4-11.0)
[2024-07-29 12:26] LABS: Anion Gap 6 (5-15); BUN 16 mg/dL (7-18); BUN/Creat Ratio 19.7 RATIO (10-20); Calcium,Total 9.4 mg/dL (8.5-10.1); Chloride 102 mmol/L (98-107); Creatinine, Serum 0.81 mg/dL (0.55-1.02); EST Glomerular Filtration Rate 71 mL/min (>60); Est Glom Filt Rate - Afr Amer 86 mL/min (>60); Estimated Creatinine Clearance 45.39 ml/min; Glucose 136 mg/dL (74-106); Potassium 3.3 mmol/L (3.5-5.1); Sodium Level 137 mmol/L (136-145)
[2024-07-29 13:43] LABS: Bacteria 0 SEEN /hpf (None Seen); Mucous, Urine 0 SEEN /hpf (<or=2+); Red Blood Cells-Urine 0 SEEN /hpf (0-5); Squamous Epithelial Cells - UA 0 SEEN /hpf (5-10); White Blood Cells 0 SEEN /hpf (0-5)
[2024-07-29 13:50] VITALS: BP 163/79; PULSE 59; RESP 16
[2024-07-29 13:50] LABS: Color, Urine Yellow (Yellow); Glucose, Dipstick Normal (Normal); Ketone-Dipstick Negative (Negative); Leukocyte Esterase-Dipstick Negative /ul (Negative); Nitrite-Dipstick Negative (Negative); Occult Blood-Urine Negative /ul (Negative); Protein-Dipstick Negative (Negative); Specific Gravity, Urine 1.015 (1.002-1.030); Urine Bilirubin Dipstick Negative (Negative); Urine Clarity Clear (Clear); Urine Urobilinogen Normal (Normal)
[2024-07-29 14:50] VITALS: O2SAT 96
[2024-07-29 15:00] VITALS: BP 164/74; PULSE 69; RESP 16; O2SAT 97
--- NOTE | 2024-07-29 15:08 | EDS_ITS ---
HPI History of Present Illness Chief Complaint: Syncope Informant: patient and family Narrative Narrative: Patient presents here by EMS, brother is present. She was at doctor's office for evaluation. She states 3 weeks ago cough congestion decreased appetite. No loss of taste or smell. Over the last week foggy brain. No headache. Cough is improved since then. She is concerned of COVID saw her PCP today. Reported sitting in the chair she felt like she is going to pass out and went out witnessed by brother. No chest pains or shortness of breath. No recent vomiting or diarrhea. No urinary symptoms. She may had fevers and chills few weeks ago that resolved. [facility] Medical History Hypertension Home Medications ?Medication ?Instructions ?Recorded ?Last Taken ?Type ascorbic acid (vitamin C) 500 mg 500 mg PO QODAY 01/05/14 Unknown History tablet (Vitamin C) aspirin 81 mg chewable tablet 81 mg PO DAILY@0800 01/05/14 01/12/17 History atenolol 25 mg tablet 25 mg PO DAILY 01/05/14 01/22/17 05:00 History 25 MG cholecalciferol (vitamin D3) 25 1,000 unit PO DAILY 01/05/14 Unknown History mcg (1,000 unit) capsule (Vitamin D3) fish oil-dha-epa 1,200 mg-144 1 ea PO DAILY 01/05/14 01/12/17 History mg-216 mg capsule hydrochlorothiazide 12.5 mg capsule 12.5 mg PO DAILY 01/05/14 Unknown History niacin 250 mg tablet,extended 250 mg PO DAILY 01/05/14 Unknown History release (Slo-Niacin) hydrocodone-acetaminophen 5-325mg 1 tab PO Q6H PRN PRN Pain ##10 01/22/17 Unknown Rx 5mg-325mg levothyroxine 88 mcg tablet 88 mcg PO DAILY #90 tabs 01/22/17 Unknown Rx (Synthroid) Allergy/AdvReac Type Severity Reaction Status Date / Time No Known Allergies Allergy Verified 07/29/24 11:25 Social History Smoking Status: Never smoker ROS ROS ED Constitutional Constitutional ED: Denies chills, fever(s) or sweats Eyes Eyes: Denies change in vision ENT ENT ED: Denies dysphagia or sore throat Cardiovascular Cardiovascular: Reports other Details: Syncope ; Denies chest pain, leg edema, palpitations or racing heartbeat Respiratory/Chest Respiratory/Chest: Reports cough; Denies dyspnea or dyspnea on exertion Gastrointestinal Gastrointestinal: Denies abdominal pain, diarrhea, nausea or vomiting Genitourinary Genitourinary ED: Denies dysuria, hematuria or urinary frequency Musculoskeletal Musculoskeletal: Denies back pain, extremity pain or neck pain Integumentary Denies rash or wounds Neurologic Neurologic: Denies headache(s), paresthesias or weakness EXAM Physical Exam Const Vital Signs: 07/29/24 11:14 07/29/24 11:21 07/29/24 13:50 Temperature 98.3 F Temperature Source Oral Pulse Rate 66 59 L Respiratory Rate 16 16 Respiratory Pattern Normal Blood Pressure 184/95 H 163/79 H Blood Pressure Mean 124 107 Pulse Ox 94 Oxygen Delivery Method Room Air 07/29/24 15:00 07/29/24 15:30 Temperature 97.4 F L Temperature Source Pulse Rate 69 61 Respiratory Rate 16 16 Respiratory Pattern Blood Pressure 164/74 H 179/76 H Blood Pressure Mean 104 110 Pulse Ox 97 96 Oxygen Delivery Method Room Air Positive well nourished and well developed Constitutional Narrative: Nontoxic answering questions appropriately. General Appearance ED: well developed and NAD HEENT Reports moist mucous membranes normocephalic and atraumatic Eyes EOMs intact bilaterally and conjunctivae normal General Eye ED: Yes normal appearance of both eyes Neck no lymphadenopathy and supple General: Negative for tenderness Chest Wall Chest: Negative for tenderness Resp normal respiratory effort and normal air movement Effort and Inspection: symmetric chest movement; Negative for respiratory distress Cardio regular rate, regular rhythm and no murmurs Peripheral Pulses: pulses 2+ throughout GI normal to inspection, nondistended, normoactive bowel sounds and non-tender Palpation: Negative for guarding or rebound tenderness present Back/Spine no CVA tenderness and no thoracic nor lumbar tenderness Extremity normal to inspection General Extremety ED: Negative for edema or tenderness General Extremity: Negative for edema Neuro oriented x3, CN's II-XII intact bilaterally and no sensory deficits noted Sensorium / Orientation: awake and alert Skin no rashes or lesions noted and no wounds MDM MDM MDM Narrative Medical decision making narrative: Interventions / MDM: Differential diagnosis: COVID-19 infection, electrolyte abnormalities Diagnosis considered but do not suspect: Intracranial hemorrhage however CT negative. Infectious causes however urine and chest x-ray negative. My EKG interpretation: Sinus rate of 55, no ST or T wave changes. QTc 397. Imaging independently reviewed and interpreted by myself: CT brain: No acute process. Two-view chest x-ray: No acute process External documents reviewed: N/A Test considered but not ordered:N/A ED course: Nontoxic alert and orient x 3. Reported syncopal episode. EKG sinus bradycardia no signs of heart block. Reports confusion a week ago that is improving. Foggy brain. CT brain order chest x-ray labs and urine. COVID testing sent for further evaluation. CT brain negative. Chest x-ray negative. Labs stable slight hypokalemia. COVID was positive. Urine returned negative. Ambulated with a pulse ox was stable with no difficulties. Potassium replaced. COVID symptoms are improving likely residual causes. Discussed with brother and patient, monitor symptoms. Discussed signs to return otherwise outpatient follow-up with her PCP. All questions were answered. Re-evaluation: stable Disposition discussed with patient/family/significant other: Patient and brother Case discussed with consulting clinician: N/A This note was generated with [employer] dictation software. It may contain incorrect words, spelling, and punctuation that were not noted in checking the note before signing. Lab Data Attestation: I reviewed the patient's lab results. Labs: Laboratory Results - last 24 hr 07/29/24 07/29/24 12:00 13:30 WBC 7.5 RBC 4.31 Hgb 12.6 Hct 39.5 MCV 91.6 MCH 29.2 MCHC 31.9 L RDW Std Deviation 55.9 H RDW Coeff of [place] 16.8 H Plt Count 360 MPV 10.5 Immature Gran % (Auto) 0.400 Neut % (Auto) 75.3 H Lymph % (Auto) 14.5 L Grand % (Auto) 8.5 Eos % (Auto) 0.5 Baso % (Auto) 0.8 Absolute Neuts (auto) 5.7 Absolute Lymphs (auto) 1.09 Nucleated RBC % 0 Sodium 137 Potassium 3.3 L Chloride 102 Carbon Dioxide 29.0 Anion Gap 6 BUN 16 Creatinine 0.81 Estim Creat Clear Calc 45.39 Est GFR (MDRD) Af Amer 86 Est GFR (MDRD) Non-Af 71 BUN/Creatinine Ratio 19.7 Glucose 136 H Calcium 9.4 Urine Color Yellow Urine Clarity Clear Urine pH 8.0 Ur Specific [place] 1.015 Urine Protein Negative Urine Glucose (UA) Normal Urine Ketones Negative Urine Occult Blood Negative Urine Nitrite Negative Urine Bilirubin Negative Urine Urobilinogen Normal Ur Leukocyte Esterase Negative Urine RBC 0 SEEN Urine WBC 0 SEEN Ur Squamous Epith Cells 0 SEEN Urine Bacteria 0 SEEN Urine Mucus 0 SEEN Radiography Diagnostic Testing: Clinical Impression(s) from Imaging Studies Brain CT 07/29/24 11:43 IMPRESSION: Chronic involutional changes of the brain. Electronically Signed: Aleks Del Toro MD at 12:45 EDT , Chest X-Ray 07/29/24 11:43 IMPRESSION: Hyperinflation. No acute abnormality is seen. Electronically Signed: Aleks Del Toro MD at 13:04 EDT , Discharge Plan Triage Chief Complaint: Syncope ED Provider: Jese De La Rosa Dx/Rx/DC Orders Clinical Impression: Syncope, COVID-19, Hypokalemia Instructions: Coronavirus Disease 2019 (COVID-19): Overview, Causes of Syncope Prescriptions: No Action atenolol 25 MG tablet 25 mg PO DAILY ascorbic acid (vitamin C) [Vitamin C] 500 MG tablet 500 mg PO QODAY niacin [Slo-Niacin] 250 MG tablet extended release 250 mg PO DAILY hydrochlorothiazide 12.5 MG capsule 12.5 mg PO DAILY aspirin 81 MG tablet,chewable 81 mg PO DAILY@0800 cholecalciferol (vitamin D3) [Vitamin D3] 1,000 UNIT capsule 1,000 unit PO DAILY fish oil-dha-epa 1 EACH capsule 1 ea PO DAILY hydrocodone-acetaminophen 1 TABLET tablet 1 tab PO Q6H PRN PRN (Reason: Pain) Qty: 10 0RF levothyroxine [Synthroid] 88 MCG tablet 88 mcg PO DAILY Qty: 90 0RF Primary Care Provider: Kristie Clark Referrals: Kristie Clark MD [Primary Care Provider] - 1 Week Activity Restrictions/Additional Instructions: Your COVID is positive, you likely had COVID with onset of symptoms earlier this month. These are residual symptoms from COVID. EKG normal. CT brain negative. Labs are all stable. Urine negative for infection. Kidney numbers are normal. Your potassium is 3.3. Oral replacement was given. Follow-up with your doctor. If you develop recurrent symptoms, return to the ED for reevaluation. Print Language: Serbian Disposition Disposition: Home, Self Care Discharge Date/Time: 07/29/24 15:38
[2024-07-29] MEDS: Potassium Chloride Oral Tablet 20 MEQ 40 MEQ PO (15:27)
[2024-07-29 15:30] VITALS: BP 179/76; PULSE 61; RESP 16; TEMP 36.3; O2SAT 96
== END 2024-07-29 15:38 | disposition home or self-care (01) ==
PROVIDERS: Emergency Provider Emergency Medicine; PCP Internal Medicine; Visit Provider Emergency Medicine
DX: U07.1 COVID-19 (principal); E87.6 Hypokalemia; I10 Essential (primary) hypertension; Z79.82 Long term (current) use of aspirin; Z79.899 Other long term (current) drug therapy
CPT/HCPCS: 70450; 71046; 80048; 81001; 85025; 87635; 93005; 99285; A4216